=== PATIENT | female | born 1970 | race Caucasian/White ===

== ENCOUNTER 2017-10-07 13:31 | Emergency (ER) | END 2017-10-07 16:06 | disposition home or self-care (01) ==

== ENCOUNTER 2019-01-15 17:45 | Emergency (ER) | payer OTHER ==
[~2019-01-15] VITALS: Ht 160 cm; Wt 100.0 kg
[~2019-01-15 17:45] MED LIST: ACET-2047 PO; BACTDS PO; CARI350T PO; HYDR-3498 PO; HYDR-3980 PO; IBUP-1541 PO; IBUP-1542 PO; ONDA8TAB14 PO; PANT20TA2 PO; ZOF8 PO
[2019-01-15 17:47] VITALS: Ht 160 cm; Wt 100.0 kg
[2019-01-15] MEDS ORDERED: KETOROLAC 30 MG INJ IM STA (19:10)
[2019-01-15] MEDS ORDERED: ACET-141 PO (21:15)
[2019-01-15] MEDS ORDERED: D-ME118S24 PO (21:15)
--- NOTE | 2019-01-15 21:16 | ERD ---
ER Documentation Chief Complaint Chief Complaint pt bib family with c/o right flank pain x 2 days ROS All systems reviewed and are negative except as per history of present illness. Medications Home Meds Active Scripts D-Methorphan Hb/P-Epd HCl/Bpm (Ypaqcsgwin-Gawqrzpfsgk-Ww Syr) 118 Ml Syrup, 5 ML PO Q4H PRN for COUGH for 10 Days, #1 BOTTLE Prov:ASHLYMARION 01/15/19 Acetaminophen* (Acetaminophen*) 500 MG Extra Strength Tablet, 500 MG PO Q4H PRN for PAIN AND OR ELEVATED TEMP, #30 TAB Prov:ASHLYMARION 01/15/19 Ondansetron (Ondansetron Odt) 8 Mg Tab.rapdis, 8 MG PO Q6H PRN for NAUSEA AND/OR VOMITING, #20 TAB Prov:SCOTT MATOS PA-C 10/07/17 Ibuprofen* (Ibuprofen*) 400 Mg Tablet, 400 MG PO Q6H PRN for PAIN, #30 TAB Prov:SCOTT MATOS PA-C 10/07/17 Acetaminophen* (Acetaminophen*) 650 Mg Tablet, 650 MG PO Q4 PRN for PAIN AND OR ELEVATED TEMP, #30 TAB Prov:SCOTT MATOS PA-C 18 Carisoprodol* (Soma*) 350 Mg Tablet, 350 MG PO TID PRN for MUSCLE SPASMS, #15 TAB Prov:MARION ROJAS MD 06/25/17 Hydrocodone/Acetaminophen ([place] 10-325 Tablet) 1 Each Tablet, 1 TAB PO Q6H PRN for PAIN, #7 TAB Prov:MARION ROJAS MD 06/25/17 Ibuprofen* (Motrin*) 600 Mg Tab, 600 MG PO Q6, #20 TAB Prov:MARION ROJAS MD 06/25/17 Sulfamethoxazole-Trimethoprim* (Bactrim* DS) 800-160 Mg Tab, 1 TAB PO BID for 5 Days, TAB Prov:SCOTT MATOS PA-C 08/15/15 Ondansetron Hcl* (Zofran* ODT) 8 mg -ODT Tab.disper, 8 MG PO Q6H PRN for NAUSEA AND OR VOMITING, #14 TAB Prov:SCOTT MATOS-C 08/15/15 Hydrocodone Bit-Acetaminophen* ([place]*) 5-325 Mg Tab, 1 TAB PO Q6 PRN for PAIN, #7 TAB Prov:SCOTT MATOS PA-C 08/15/15 Reported Medications Pantoprazole* (Protonix*) 20 Mg Tablet.dr, 20 MG PO DAILY 03/23/12 Allergies Allergies: Coded Allergies: No Known Allergy (Unverified , 08/14/15) PMhx/Soc History of Surgery: Yes (CHOLECYSTECTOMY, HYSTERECTOMY) Anesthesia Reaction: No Hx Neurological Disorder: No Hx Respiratory Disorders: No Hx Cardiac Disorders: No Hx Psychiatric Problems: Yes (DEPRESSION) Hx Miscellaneous Medical Probl: No Hx Alcohol Use: No Hx Substance Use: No Hx Tobacco Use: No Smoking Status: Never smoker Physical Exam Vitals Vital Signs Date Temp Pulse Resp B/P (MAP) Pulse Ox O2 O2 Flow FiO2 Time Delivery Rate 01/15/19 99.3 84 18 127/75 99 17:47 (92) Physical Exam Const: No acute distress Head: Atraumatic Eyes: Normal Conjunctiva ENT: Normal External Ears, Nose and Mouth. Neck: Full range of motion. No meningismus. Resp: Clear to auscultation bilaterally Cardio: Regular rate and rhythm, no murmurs Abd: Soft, non tender, non distended. Normal bowel sounds Skin: No petechiae or rashes Back: No midline or flank tenderness Ext: No cyanosis, or edema Neur: Awake and alert Psych: Normal Mood and Affect Result Diagram: 01/15/19192101/15/191922 Results 24 hrs Laboratory Tests Test 01/15/19 19:22 01/15/19 19:23 01/15/19 19:27 White Blood Count 6.6 10^3/ul Red Blood Count 4.41 10^6/ul Hemoglobin 13.2 g/dl Hematocrit 39.7 % Mean Corpuscular Volume 90.0 fl Mean Corpuscular Hemoglobin 29.9 pg Mean Corpuscular 33.2 g/dl Hemoglobin Concent Red Cell Distribution Width 11.9 % Platelet Count 214 10^3/UL Mean Platelet Volume 11.3 fl Immature Granulocytes % 0.300 % Neutrophils % 52.7 % Lymphocytes % 29.0 % Monocytes % 9.2 % Eosinophils % 7.9 % Basophils % 0.9 % Nucleated Red Blood Cells % 0.0 /100WBC Immature Granulocytes # 0.020 10^3/ul Neutrophils # 3.5 10^3/ul Lymphocytes # 1.9 10^3/ul Monocytes # 0.6 10^3/ul Eosinophils # 0.5 10^3/ul Basophils # 0.1 10^3/ul Nucleated Red Blood Cells # 0.0 10^3/ul Urine Color YELLOW Urine Clarity CLEAR Urine pH 6.0 Urine Specific [place] 1.023 Urine Ketones NEGATIVE mg/dL Urine Nitrite NEGATIVE mg/dL Urine Bilirubin NEGATIVE mg/dL Urine Urobilinogen NEGATIVE mg/dL Urine Leukocyte Esterase TRACE Malik/ul Urine Microscopic RBC 1 /HPF Urine Microscopic WBC 1 /HPF Urine Squamous Epithelial Cells FEW /HPF Urine Hemoglobin NEGATIVE mg/dL Urine Glucose NEGATIVE mg/dL Urine Total Protein NEGATIVE mg/dl Sodium Level 142 mmol/L Potassium Level 4.2 mmol/L Chloride Level 104 mmol/L Carbon Dioxide Level 29 mmol/L Anion Gap 9 Blood Urea Nitrogen 18 mg/dl Creatinine 0.67 mg/dl Est Glomerular Filtrat > 60 mL/min Rate mL/min Glucose Level 93 mg/dl Calcium Level 9.3 mg/dl Total Bilirubin 0.5 mg/dl Direct Bilirubin 0.00 mg/dl Indirect Bilirubin 0.5 mg/dl Aspartate Amino Transf (AST/SGOT) 26 IU/L Alanine 36 IU/L Aminotransferase (ALT/SGPT) Alkaline Phosphatase 63 IU/L Total Protein 7.3 g/dl Albumin 4.3 g/dl Globulin 3.00 g/dl Albumin/Globulin Ratio 1.43 Lipase 143 U/L POC Beta HCG, Qualitative NEGATIVE Current Medications Medications Dose Sig/Alina Start Time Status Last (Trade) Ordered Route PRN Stop Time Admin Dose Reason Admin Ketorolac 30 mg ONCE STAT 01/15/19 DC 01/15/19 Tromethamine IM 19:10 19:34 (Toradol) 01/15/19 19:12 Departure Diagnosis: Primary Impression: Flank pain Additional Impression: Cough Condition: Fair Patient Instructions: Flank Pain, Uncertain Cause Additional Instructions: Call your primary care doctor TOMORROW for an appointment during the next 1-2 days.See the doctor sooner or return here if your condition worsens before your appointment time. Llame al doctor MAANA y tejinder dean BHAVIK PARA DENTRO DE 1-2 HENRY.Dgale a la secretaria que nosotros le instruimos hacer esta bhavik.Avise o llame si yanes condicin se empeora antes de la bhavik. Regresa aqui si peor o no mejor. MARION LIMON DO Jan 15, 2019 21:16
[2019-01-15 21:27] VITALS: BP 120/75; PULSE 68; RESP 18
== END 2019-01-15 21:28 | disposition home or self-care (01) ==
LOC: FTE 17:45
DX: R10.9 Unspecified abdominal pain (principal); R05 Cough
CPT/HCPCS: 36415; 71046; 74018; 80053; 81001; 81025; 83690; 85025; 96372; J1885; Z7502